=== PATIENT | male | born 1985 | race African-American/Black ===

== ENCOUNTER 2019-11-28 20:36 | Emergency (ER) | payer SELFPAY ==
--- NOTE | 2019-11-28 20:59 | RAD ---
Chest one view HISTORY: Chest pain. Dyspnea. FINDINGS: Cardiac silhouette and pulmonary vasculature are unremarkable. Mediastinum is midline. No c onfluent airspace consolidation or evidence of pneumothorax. Calcified granulomata are consistent with healed granulomatous disease. IMPRESSION : No active cardiopulmonary abnormalities are demonstrated.
[2019-11-28 21:19] LABS: Hemoglobin 14.3 g/dL (14.0-18.0); Mean Corpuscular HGB CONC 30.7 g/dL (32.0-36.0); Mean Corpuscular Hemoglobin 27.3 pg (27.0-31.0); Mean Corpuscular Volume 88.9 fL (78.0-98.0); Mean Platelet Volume 7.7 fL (7.4-10.4); Platelet Count 272 thou/uL (130-400); RBC Distribution Width 13.1 % (11.5-14.5); Red Blood Cell (RBC) Count 5.22 mill/uL (4.70-6.10)
[2019-11-28 21:24] LABS: ALT (SGPT) 10 U/L (8-55); AST (SGOT) 15 U/L (5-34); Alkaline Phosphatase 65 U/L (40-110); Anion Gap 13 mmol/L (10-20); BUN (Urea Nitrogen) 13 mg/dL (8.9-20.6); Bilirubin, Total 0.3 mg/dL (0.2-1.2); Calc. Creatinine Clearance 0 mL/min (70-130); Carbon Dioxide 29 mmol/L (22-29); Chloride 103 mmol/L (98-107); Estimated GFR-MDRD 82; Globulin 3.1 g/dL (2.4-3.5); Glucose 84 mg/dL (70-105); Potassium 4.4 mmol/L (3.5-5.1); Protein, Total 7.1 g/dL (6.0-8.3); Sodium 141 mmol/L (136-145)
[2019-11-28 21:28] LABS: Band 1 % (5-11); Lymphocytes 46 % (21-51); MDiff Complete? YES; Monocytes 8 % (0-10); Neutrophil 45 % (42-75)
[2019-11-28] MEDS ORDERED: Ibuprofen 200 MG TAB ONE (21:31)
[2019-11-28] MEDS ORDERED: Acetaminophen 500 MG TAB ONE (21:31)
== END 2019-11-28 23:05 | disposition home or self-care (01) ==
LOC: ERS 20:36
DX: R07.9 Chest pain, unspecified (principal); J45.909 Unspecified asthma, uncomplicated; F17.210 Nicotine dependence, cigarettes, uncomplicated
CPT/HCPCS: 36415; 71045; 80053; 84484; 85025; 93005

== ENCOUNTER 2021-11-30 18:40 | Emergency (ER) | payer SELFPAY | END 2021-11-30 19:07 | disposition home or self-care (01) | LOC: ERS 18:40 | DX: L25.9 Unspecified contact dermatitis, unspecified cause (principal); F17.210 Nicotine dependence, cigarettes, uncomplicated | CPT/HCPCS: 99282 ==

== ENCOUNTER 2025-05-25 23:52 | Emergency (ER) | payer SELFPAY ==
[2025-05-26] MEDS ORDERED: Acetaminophen 500 MG TAB ONE (00:32)
[2025-05-26 01:06] LABS: #Basophils Less than 0.03 10x3/uL (0.0-0.2); #Eosinophils Less than 0.03 10x3/uL (0.0-0.7); #Monocytes 1.30 10x3/uL (0.11-0.59); #Neutrophils 8.90 10x3/uL (1.40-6.50); %Basophils 0.2 % (0.0-1.0); %Eosinophils 0.2 % (0.0-10.0); %Lymphocytes 15.5 % (21.0-51.0); %Monocytes 10.7 % (0.0-10.0); %Neutrophils 73.2 % (42.0-75.0); Hematocrit 46.8 % (42.0-52.0); Hemoglobin 14.8 g/dL (14.0-18.0); Mean Corpuscular Hemoglobin 26.4 pg (27.0-31.0); Mean Corpuscular Volume 83.6 fL (78.0-98.0); Platelet Count 245 10x3/uL (130-400); Red Blood Cell (RBC) Count 5.60 mill/uL (4.70-6.10); White Blood Cell (WBC) Count 12.16 10x3/uL (4.8-10.8)
[2025-05-26 01:36] LABS: ALT (SGPT) 61 U/L (Less than 45); AST (SGOT) 77 U/L (11-34); Albumin 4.3 g/dL (3.1-4.5); Alkaline Phosphatase 73 U/L (40-110); Anion Gap 17 mmol/L (10-20); BUN (Urea Nitrogen) 12 mg/dL (8.9-20.6); Bilirubin, Total 1.1 mg/dL (0.3-1.2); Calc. Creatinine Clearance 0 mL/min (70-130); Calcium 9.7 mg/dL (7.8-10.44); Carbon Dioxide 25 mmol/L (22-29); Chloride 100 mmol/L (98-107); Globulin 3.6 g/dL (2.4-3.5); Glucose 104 mg/dL (70-105); Potassium 4.1 mmol/L (3.5-5.1); Sodium 138 mmol/L (136-145)
[2025-05-26] MEDS ORDERED: Iopamidol 370 76% 100 ML VIAL ONE (09:36)
== END 2025-05-26 03:50 | disposition home or self-care (01) ==
LOC: ERS 23:52
DX: S16.1XXA Strain of muscle, fascia and tendon at neck level, initial encounter (principal); J45.909 Unspecified asthma, uncomplicated; F17.210 Nicotine dependence, cigarettes, uncomplicated; V50.6XXA Passenger in pick-up truck or van injured in collision with pedestrian or animal in traffic accident, initial encounter
CPT/HCPCS: 70450; 70498; 72125; 80053; 85025